=== PATIENT | female | born 1940 | race Caucasian/White ===

== ENCOUNTER → 2017-12-13 | Outpatient (CLI) | payer OTHER | LOC: MRI 12-10 12:12 | DX: M47.897 Other spondylosis, lumbosacral region (principal); M51.36 Other intervertebral disc degeneration, lumbar region ==

== ENCOUNTER → 2019-01-23 | Outpatient (CLI) | payer OTHER | LOC: RAD 15:14 | DX: M85.88 Other specified disorders of bone density and structure, other site (principal) ==